=== PATIENT | female | born 1940 | race African-American/Black ===

== ENCOUNTER 2016-11-28 05:30 | Inpatient (IN) ==
--- NOTE | 2016-11-25 12:38 | EKG Report ---
Stationary ECG Study [facility] Test Date: 11/25/2016 12:38:08 PM Pat Name: WILLA SCHROEDER Department: Room: Gender: F Discount Clerk: JATINDER SEPULVEDA : 1940 Requested by: Feliciano Sepulveda Order Number: [id number] Reading MD: BABS PABON Intervals [place] Rate: 78 P: 80 UT: 161 QRS: 30 QRSD: 76 T: 63 QT: 340 QTc: 374 Interpretive Statements SINUS RHYTHM LOW QRS VOLTAGE IN PRECORDIAL LEADS Electronically Signed On 11-25-16 12:44:54 CDT by BABS PABON [email or web address]
[2016-11-25 12:42] LABS: Basophils % 0.3 % (0.0-0.8); Eosinophils # 0.2 10*3/uL (0.0-0.87); Eosinophils % 3.7 % (0.00-10.9); Hematocrit 42.4 VOL% (35.7-47.0); Hemoglobin 13.6 GM/DL (12.0-16.0); Immature Granulocytes % 0.2 %; Immature Granulocytes Absolute 0.01 #; Lymphocytes # 1.8 10*3/uL (1.4-4.0); Lymphocytes % 30.4 % (21.3-54.2); Mean Corpuscular HGB Conc 32.1 GM/DL (32-36); Mean Corpuscular Hemoglobin 30 PG (27-34); Mean Platelet Volume 12.5 FL (9.6-12.0); Monocytes # 0.6 10*3/uL (0.11-0.8); Monocytes % 10.3 % (1.7-12.7); Neutrophils # 3.3 10*3/uL (1.4-7.4); Neutrophils % 55.1 % (38.7-73.9); Platelet Count 160 T/CUMM (130-400); Red Blood Count 4.56 MC/CUMM (3.8-5.5); Red Cell Distribution Width 13.5 % (9.3-17.3)
[2016-11-25 13:22] LABS: Alanine Aminotransferase 28 U/L (13-56); Albumin 3.4 G/DL (3.4-5.0); Alkaline Phosphatase 111 U/L (45-117); Aspartate Amino Transferase 19 U/L (0-37); Bilirubin,Total < 0.39 MG/DL (0.2-1.0); Blood Urea Nitrogen 17 MG/DL (7-18); Calcium 9.1 MG/DL (8.5-10.1); Glucose 92 MG/DL (74-106); Osmolality,Calculated 293.4 MOS/KG (273-304); Potassium 3.6 MMOL/L (3.5-5.1); Sodium 147 MMOL/L (136-145); Total Protein 6.5 G/DL (6.4-8.3)
[2016-11-28] MEDS ORDERED: ERTAPENEM 500 MG in SODIUM CHLORIDE 0.9% 100 ML IV SCH (06:00)
[2016-11-28] MEDS ORDERED: ALVIMOPAN 12 MG CAPSULE PO ONE (06:00)
[2016-11-28] MEDS ORDERED: ALVIMOPAN 12 MG CAPSULE ONE (06:06)
[2016-11-28] MEDS ORDERED: ERTAPENEM 1,000 MG VIAL ONE (06:06)
[2016-11-28] MEDS ORDERED: SODIUM CHLORIDE 0.9% 100 ML IV ONE (06:06)
[2016-11-28] MEDS: LACTATED RINGERS 1,000 ML IV SCH ×4 (06:45→20:58)
--- NOTE | 2016-11-28 06:56 | History and Physical Update ---
History and Physical Update - History and Physical H&P was reviewed, the patient examined and there: are no changes in the patients condition since last H&P was completed. - Dictation Physical: refer to scanned H&P - Physical Exam Mental Status: alert and oriented Heart: regular rate and rhythm Lung: clear to auscultation Abdomen: within normal limits Vitals: within normal limits
[2016-11-28] MEDS ORDERED: TISSUE ADHESIVE 1 EACH APPLICATOR TOP ONE (10:48)
[2016-11-28] MEDS ORDERED: PROPOFOL 200 MG/20 ML VIAL IV ONE (11:34)
[2016-11-28] MEDS ORDERED: MIDAZOLAM 2 MG/2 ML VIAL ONE (11:35)
[2016-11-28] MEDS ORDERED: SEVOFLURANE 1 UNIT/15 MINUTE INH ONE (11:35)
--- NOTE | 2016-11-28 11:35 | Operative Note ---
Date of procedure: 11/28/16 Pre-op diagnosis: Right colon mass Post-op diagnosis: same Procedure: Preoperative diagnosis Right colon mass Postoperative diagnosis Same Procedures performed 1. Robotic assisted laparoscopic lysis of adhesions 2. Robotic assisted laparoscopic right colectomy Complications None apparent Specimen Right colon Additional terminal ileum and redo anastomosis Findings The 2 separate tattoos were seen and the specimen was opened on the back table to reveal adequate removal of both tattooed areas with a distal margin of 5 cm. The initial anastomosis had a twisted mesentery so it was revised and resected and redone. The final anastomosis appeared patent and well perfused. There is extensive intra-abdominal adhesions that required lysis of adhesions. There was no evidence of intra-abdominal malignancy or seeding/metastatic disease in the liver or the peritoneum. Blood loss 50 mL Anesthesia GETA Indications Right colon mass with dysplasia. Description of procedure The patient was taken to the operating room and transferred to the operating table in supine position. Pressure points were padded and SCDs were placed lower extremities. General endotracheal anesthesia was administered. A Lomax catheter was placed with clear urine output. The patient was prepped and draped with chlorhexidine. Preoperative antibiotics were administered and a timeout was performed. The abdomen was entered in a supraumbilical paramedian location on the left side of the abdominal wall with a Veress needle. An 8 mm skin incision was made with an 11 blade scalpel and penetrating towel clips were used to grasp the abdominal wall skin Veress needle was used to enter the peritoneal cavity confirmed by double click technique. Aspiration was negative. Saline drop test confirmed intraperitoneal location. The Veress needle was used to insufflate the abdominal cavity to 15 mmHg with an initial pressure of 2 mmHg. The Veress needle was removed and a robotic 8 mm trocar was placed blindly. Laparoscope was inserted. There is no evidence of Veress needle or trocar injury. The patient had extensive intra-abdominal adhesions. The 12 mm left upper quadrant abdominal trochars placed under direct visualization after local anesthetic was administered and the 5 mm library media assistant trocar was placed in the left lower quadrant. The adhesions were taken down with sharp dissection with lysis of adhesions laparoscopically. The 8 mm left lower quadrant trocar was then placed. The robot was docked. The cecum was retracted and the ileocolic pedicle was identified and divided with a vascular stapler. Medial to lateral dissection was performed with visualization of the duodenum and the dissection was then carried up towards the transverse colon. The colon was transected at this location after the omentum was taken off the colon with electrocautery using a ART stapler after pinpoint technology was used with ICG green and an area of adequate perfusion was identified as the transection site. The terminal ileum was then transected also with a ART stapler. There were some adhesions to the pelvis from the patient's prior surgery on the terminal ileum that had to be dissected free in some of the terminal ileum got beat up a little bit during the dissection so an additional segment of terminal ileum was removed and sent as a separate specimen. An intracorporeal anastomosis was completed by making an enterotomy and colotomy in the GI stapler was used to staple the anastomosis side to side. The enterotomy was closed in 2 layers with a running 3-0 Vicryl suture and 3-0 silk Lembert sutures. The piece of anastomosis that was resected during the closure of the staple line was taken out through separate specimen. The mesentery was inspected and was not twisted. The robot was undocked. The specimen was extracted through a left upper quadrant incision extended from the 12 mm trocar site through an Johan retractor. The specimen was opened on the back table and the mass was seen with adequate resection margins. Gloves and gowns were then changed. The fascial incision was closed with a #0 non-looped PDS suture in 2 layers. The skin incisions were closed with skin clips and irrigated prior to closing. The patient's Lomax was removed and she was awakened from anesthesia and transferred to recovery. Postoperative plan Advance diet as tolerated Pain control Anesthesia: GETA Surgeon / Physician: Feliciano Timmons Estimated blood loss: minimal (50 mL) Specimens: other (right colon) Condition: stable Disposition: PACU Results - Labs CBC & BMP: 11/25/16 12:31 11/25/16 12:31 Discharge Plan - Discharge Medications No Action Atorvastatin [Lipitor] 20 mg PO DAILY Sertraline HCl [Sertraline HCl] 50 mg PO BEDTIME Naproxen Sodium [Naproxen Sodium] 550 mg PO BID PRN PRN Reason: Pain buPROPion HCl [Bupropion HCl Sr] 150 mg PO DAILY Bisoprol/Hydrochlorothiazide [Bisoprolol-Hctz 10-6.25 mg Tab] 1 tablet PO DAILY HYDROcodone/ACETAMIN 7.5-325 [[place] 7.5-325] 1 tablet PO Q6H #10 tablet Dorzolamide 2% Oph Soln [Trusopt 2% Oph Soln] 1 drop BOTH EYES TID Latanoprost [Latanoprost 0.005 % Oph Soln] 1 drop BOTH EYES BEDTIME Brimonidine 0.2% Oph Soln [[place]phagan P 0.2% Oph Soln] 1 drop BOTH EYES BID - Follow Up or Referral - Forms/Instructions
[2016-11-28] MEDS ORDERED: KETOROLAC 30 MG/1 ML VIAL ONE (11:36)
[2016-11-28] MEDS ORDERED: ONDANSETRON 4 MG/2 ML VIAL ONE ×2 (11:36→12:02)
[2016-11-28] MEDS ORDERED: GLYCOPYRROLATE 0.4 MG/2 ML VIAL ONE (11:36)
[2016-11-28] MEDS ORDERED: NEOSTIGMINE 10 MG/10 ML VIAL ONE (11:36)
[2016-11-28] MEDS ORDERED: ROCURONIUM 100 MG/10 ML VIAL IV ONE (11:37)
[2016-11-28] MEDS ORDERED: LACTATED RINGERS 1,000 ML IV ONE (11:37)
[2016-11-28] MEDS ORDERED: ACETAMINOPHEN 1,000 MG/100 ML VIAL IV ONE (11:37)
[2016-11-28] MEDS ORDERED: ONDANSETRON 4 MG/2 ML VIAL IV PRN ×2 (12:04→12:39)
[2016-11-28] MEDS ORDERED: PROMETHAZINE 25 MG/1 ML VIAL IM PRN (12:39)
--- NOTE | 2016-11-28 14:20 | Anesthesia Post-Op ---
Anesthesia Post OP - Post Ansesthetic Evaluation Patient seen in post op: Yes Resp: within normal limits CV: within normal limits Mental: within normal limits Temp: within normal limits [id number]: within normal limits Nausea and Vomiting: within normal limits Pain: within normal limits
[2016-11-28] MEDS: DORZOLAMIDE 2% OPH SOLN 10 ML BOTTLE BOTH EYES SCH ×2 (16:37→21:33)
[2016-11-28] MEDS: KETOROLAC 15 MG/1 ML VIAL IV SCH (17:36)
--- NOTE | 2016-11-28 19:03 | Event Note ---
General Surgery Progress Note Chief complaint This patient is a 76-year-old woman admitted to the hospital following robotic assisted laparoscopic right colectomy for cecal mass on 11/28/2016 Interval history The patient is resting comfortably. She is having some increased frequency of urination and feels like she cannot completely evacuate her bladder since surgery. There is no hematuria. She is tolerating her diet but she has not walked in the hallway yet. No flatus or bowel movements yet. Pain is well controlled with only Toradol. Physical exam Afebrile with normal vital signs Expected postoperative tenderness but some suprapubic tenderness and fullness is present Labs None new Imaging Post void residual is over 500 cc Assessment and plan Diet as tolerated Repeat labs in the morning Begin in and out catheterization every 8 hours and increase activity
[2016-11-28] MEDS: ALVIMOPAN 12 MG CAPSULE PO SCH (20:52)
[2016-11-28] MEDS ORDERED: SERTRALINE 50 MG TABLET PO SCH (21:00)
[2016-11-28] MEDS ORDERED: LATANOPROST 0.005% OPH SOLN 2.5 ML BOTTLE BOTH EYES SCH (21:00)
[2016-11-28] MEDS: BRIMONIDINE 0.2% OPH SOLN 5 ML BOTTLE BOTH EYES SCH (21:33)
[2016-11-29] MEDS: KETOROLAC 15 MG/1 ML VIAL IV SCH ×3 (04:27→11:49)
[2016-11-29 05:14] LABS: Basophils % 0.1 % (0.0-0.8); Eosinophils % 0.1 % (0.00-10.9); Hematocrit 36.3 VOL% (35.7-47.0); Hemoglobin 11.7 GM/DL (12.0-16.0); Immature Granulocytes % 0.4 %; Immature Granulocytes Absolute 0.05 #; Lymphocytes # 1.5 10*3/uL (1.4-4.0); Mean Corpuscular HGB Conc 32.2 GM/DL (32-36); Mean Corpuscular Hemoglobin 30 PG (27-34); Mean Corpuscular Volume 91.7 FL (87-102); Mean Platelet Volume 13.2 FL (9.6-12.0); Monocytes # 0.9 10*3/uL (0.11-0.8); Monocytes % 8.1 % (1.7-12.7); Neutrophils % 78.3 % (38.7-73.9); Platelet Count 125 T/CUMM (130-400); Red Blood Count 3.96 MC/CUMM (3.8-5.5); Red Cell Distribution Width 13.9 % (9.3-17.3); White Blood Count 11.5 T/CUMM (4-12)
[2016-11-29] MEDS: LACTATED RINGERS 1,000 ML IV SCH (05:21)
[2016-11-29] MEDS ORDERED: ENOXAPARIN 40 MG/0.4 ML SYRINGE SUBCUT SCH (06:30)
[2016-11-29 07:15] LABS: Calcium 8.3 MG/DL (8.5-10.1); Osmolality,Calculated 287.8 MOS/KG (273-304); Potassium 3.3 MMOL/L (3.5-5.1)
[2016-11-29 07:28] VITALS: BP 101/50
[2016-11-29 07:41] LABS: Hypochromasia Slight; Macrocytosis 1+
[2016-11-29] MEDS ORDERED: BISOPROLOL/HCTZ 10-6.25 MG TABLET PO SCH (09:00)
[2016-11-29] MEDS ORDERED: ATORVASTATIN 20 MG TABLET PO SCH (09:00)
[2016-11-29] MEDS ORDERED: PANTOPRAZOLE 40 MG TABLET PO SCH (09:00)
[2016-11-29] MEDS ORDERED: buPROPion SR 150 MG TABLET PO SCH (09:00)
[2016-11-29] MEDS: DORZOLAMIDE 2% OPH SOLN 10 ML BOTTLE BOTH EYES SCH (09:06)
[2016-11-29] MEDS: BRIMONIDINE 0.2% OPH SOLN 5 ML BOTTLE BOTH EYES SCH (09:06)
[2016-11-29] MEDS: ALVIMOPAN 12 MG CAPSULE PO SCH (09:07)
[2016-11-29] MEDS: POTASSIUM CHLORIDE RIDER 10 MEQ in PREMIX 1 EACH IV SCH ×2 (09:14→10:48)
--- NOTE | 2016-11-29 12:20 | Discharge Summary ---
Hospital Course - Hospital Course Hospital Course: This patient was admitted following robotic assisted laparoscopic right colectomy for cecal mass on 11/28/2016. She had a bowel movement that evening and did have some problems with urinary retention but this resolved on its own overnight. Her postvoid residual following urination the day of discharge was less than 150 cc. Her symptoms of incomplete voiding had resolved. Her labs were stable and her vital signs were normal. She was tolerating her diet and had return of bowel function. Her pain is well controlled with oral pain medications. She was discharged home with follow-up with me in clinic in 2 weeks. We did send her home for short course of Flomax to assist with bladder emptying. Discharge Plan - Discharge Data Disposition: Disch To Home/Self Care Condition at Discharge: Stable Discharge Diet: advance to your usual diet Activity: no lifting Hygiene: may shower Weight Bearing at Discharge: weight bear as tolerated Driving: other (Do not drive or operate heavy machinery for at least 24 hours and after you are off of narcotic pain medications.) Contact your physician if you experience:: fever over 101, Difficulty voiding, Redness or swelling, Nausea/Vomiting, Shortness of breath, Bleeding, pain uncontrolled by pain medications Wound / Dressing Care Instructions: It is okay to shower. Do not scrub the incision aggressively or submerge it under water. - Discharge Medications New RX: HYDROcodone/ACETAMIN 7.5-325 [[place] 7.5-325] 1 tablet PO Q4H PRN #30 tablet PRN Reason: Pain Moderate (4-7) Tamsulosin [Flomax] 0.4 mg PO DAILY #7 capsule Continue RX: Atorvastatin [Lipitor] 20 mg PO DAILY RX: Sertraline HCl 50 mg PO BEDTIME RX: Naproxen Sodium [Naproxen Sodium Tab] 550 mg PO BID PRN PRN Reason: Pain RX: buPROPion HCl [Bupropion HCl Sr] 150 mg PO DAILY RX: Bisoprol/Hydrochlorothiazide [Bisoprolol-Hctz 10-6.25 mg Tab] 1 tablet PO DAILY RX: Dorzolamide 2% Oph Soln [Trusopt 2% Oph Soln] 1 drop BOTH EYES TID RX: Latanoprost [Latanoprost 0.005 % Oph Soln] 1 drop BOTH EYES BEDTIME RX: Furosemide 30 mg PO DAILY RX: Potassium Chloride 8 meq PO DAILY RX: Brimonidine 0.2% Oph Soln [Alphagan P 0.2% Oph Soln] 1 drop BOTH EYES BID RX: HYDROcodone/ACETAMIN 7.5-325 [[place] 7.5-325] 1 tablet PO Q6H PRN PRN Reason: Pain - Follow Up or Referral Follow Up: Feliciano Timmons MD [Physician] - 2 Weeks - Forms/Instructions Exam - Constitutional Vitals: Period Temp Pulse Resp BP Sys/Randall Pulse Ox Last 24 Hr 97.0 F-98.9 F 67-93 14-20 101-150/50-77 94-100 General appearance: no acute distress, morbidly obese - Head Head exam: Present: normal inspection, normocephalic - Eye Eye exam: Present: EOMI Pupils: Present: SUZETTE - ENT ENT exam: Present: normal exam - Neck Neck exam: Present: normal inspection - Respiratory Respiratory exam: Present: clear to auscultation bilaterally, accessory muscle use - Cardiovascular Cardiovascular exam: Present: regular rate and rhythm. Absent: systolic murmur , tachycardia - GI/Abdominal GI/Abdominal exam: Present: soft. Absent: tenderness, rebound - Extremities Exam Extremities exam: Present: normal inspection, normal capillary refill - Back Exam Back exam: Present: normal inspection - Neurological Exam Neurological exam: Present: alert, oriented X3 - Psychiatric Psychiatric exam: Present: normal affect, normal mood - Skin Skin exam: Present: normal color, warm Discharge Results Labs on day of discharge: Labs from last 24 hours 11/29/16 11/29/16 04:17 04:17 WBC 11.5 D RBC 3.96 Hgb 11.7 L Hct 36.3 MCV 91.7 MCH 30 MCHC 32.2 RDW 13.9 Plt Count 125 L D MPV 13.2 H Neut % (Auto) 78.3 H Lymph % (Auto) 13.0 L [place] % (Auto) 8.1 Eos % (Auto) 0.1 Baso % (Auto) 0.1 Neut # (Auto) 9.0 H Lymph # (Auto) 1.5 [place] # (Auto) 0.9 H Eos # (Auto) 0.0 Baso # (Auto) 0.0 Immature Gran % 0.4 Nucleated RBC % 0.0 Immature Gran # 0.05 Nucleated RBCs # 0.00 Hypochromasia Slight Macrocytosis 1+ Sodium 144 Potassium 3.3 L Chloride 104 Carbon Dioxide 28 Anion Gap 15.3 H BUN 12 Creatinine 0.80 GFR Calculation 98 BUN/Creatinine Ratio 15.00 Glucose 131 H Calculated Osmolality 287.8 Calcium 8.3 L DS: Provider Date of admission: 11/28/16 11:29 Primary care physician: Myke Corona MD Attending physician on admission: Feliciano Timmons MD Consults: 11/28/16 14:01 Consult to Pastoral Services [CONS] Routine Comment: Pastoral Screen: Request Press Worker Helper Visit Pastoral Screen Source of Request: Family Discharging clinician: Feliciano Timmons MD Expected date of discharge: 11/29/16
--- NOTE | 2016-12-01 12:20 | Pathology Report from [facility] ---
[facility] [place] : [id number] PATIENT NAME : Carisa Schroeder ORDERING DR : Feliciano Timmons MD CLINICAL HX: Colonic mass POST-OP DX: Same SPECIMEN INFO: Right colon GROSS DESCRIPTION: Received in formalin labeled CARISA SCHROEDER consists of a segment of colon to include the cecum measuring 36.5 x 2.5 cm. The terminal ileum measures 6.5 x 2.2 cm. An appendix is not identified. The colon is received partially opened revealing a fungating tumor mass within the cecum which measures 6.0 x 5.0 x 2.2 cm which involves the ileocecal valve and grossly comes to within 5 cm of the proximal margin and 35.0 cm of the distal margin. Grossly the tumor does not ivade the bowel wall and grossly comes to within 7.0 cm of the mesenteric margin. Lymph nodes will be submitted following fixation. Sections submited A-Proximal margin, B-Distal margin, C-Mesenteric margin D-L-Tumor, M-O-Lymph nodes. DIAGNOSIS FOR CARISA SCHROEDER: RIGHT COLON, ILEOCOLECTOMY (Intact, 43 x 2.5 cm ): TYPE: Invasive adenocarcinoma, TUMOR SITE: Cecum TUMOR SIZE: 6 x 5 x 2.2 cm. MACROSCOPIC TUMOR PERFORATION: Absent. HISTOLOGIC GRADE: Low grade (Well differentiated). MICROSCOPIC TUMOR EXTENSION: Tumor invadesmuscularis propria MARGINS, PROXIMAL: Uninvolved by carcinoma, distance = 5 cm DISTAL: Uninvolved by carcinoma, distance = 35 cm MESENTERIC: Uninvolved by carcinoma, distance = 7 cm ] TREATMENT EFFECT: No prior treatment. LYMPH VASCULAR INVASION: Present. PERINEURAL INVASION: Absent TUMOR DEPOSITS: Not identified. LYMPH NODES: NUMBER EXAMINED: 23. NUMBER INVOLVED: 2. ADDITIONAL FINDINGS: n/ a.AJCC PATHOLOGIC STAGE IIIB ([id number] ). COLLECTED DATE: 11/28/2016 [facility] REPORT DATE: 12/01/2016 ELECTRONICALLY SIGNED BY: Vishnu Weston III, M.D. 12/01/2016 - 8:56:30 [facility]
== END 2016-11-29 14:21 | disposition home or self-care (01) | DRG 330 ==
LOC: N.OR 05:30 → N.SDSINP 05:31 → N.3E 10:32
PROVIDERS: ADMIT Surgery; ATTEND Surgery